=== PATIENT | male | born 1980 | race Caucasian/White ===

== ENCOUNTER 2017-09-11 00:26 | Emergency (ER) | payer OTHER ==
[~2017-09-11] VITALS: Ht 180.3 cm; Wt 89.5 kg
[2017-09-11 00:31] VITALS: BP 141/94; PULSE 87; RESP 18; TEMP 97.7; O2SAT 99
[2017-09-11] MEDS ORDERED: KETOROLAC TROMETHAMINE 60 MG/2 ML (IM) VIAL IM ONE (01:00)
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
[2017-09-11] MEDS ORDERED: IBUP1TAB7 PO (01:16)
[2017-09-11] MEDS ORDERED: DIAZ5 PO (01:16)
[2017-09-11 01:31] VITALS: BP 135/90
== END 2017-09-11 01:48 | disposition home or self-care (01) ==
LOC: PHED 00:26
DX: M62.838 Other muscle spasm (principal); T14.8XXA Other injury of unspecified body region, initial encounter; M54.6 Pain in thoracic spine; V49.49XA Driver injured in collision with other motor vehicles in traffic accident, initial encounter; Z72.0 Tobacco use
CPT/HCPCS: 72072; 96372; 99283; J1885